=== PATIENT | male | born 1985 | race Hispanic/Latino ===

== ENCOUNTER 2020-01-24 15:46 | Emergency (ER) | payer OTHER ==
[2020-01-24] MEDS ORDERED: SODIUM CHLORIDE 0.9% (FLUSH) 10 ML SYG IV PRN (15:47)
[2020-01-24] MEDS ORDERED: ONDANSETRON INJ 4 MG/2 ML VIAL IV ONE (16:09)
[2020-01-24] MEDS ORDERED: MORPHINE SULFATE INJ 10 MG/ML VIAL IV ONE ×3 (16:09→19:03)
[2020-01-24] MEDS ORDERED: NITROGLYCERIN 0.4 MG 25 EA TAB SL ONE (16:09)
[2020-01-24] MEDS ORDERED: SODIUM CHLORIDE 0.9% 1000ML 1,000 ML IVS ONE ×2 (16:10→17:40)
--- NOTE | 2020-01-24 16:12 | ED.PDOC ---
History of Present Illness - General Chief Complaint: Chest Pain/DE Stated Complaint: chest pain Time Seen by Provider: 01/24/20 15:47 Source: patient - History of Present Illness Initial Comments: 34 yo male with PMH of HTN who presents with cc of chest pain. Onset at 6 am today, worsened acutely approx 1 hour ago at rest, since then has been constant sharp 10/10 severity, located to entire anterior chest, radiates to back, neck, and head. Tried ASA 325 mg PO this morning w/o relief. Went to chiropractor and got an adjustment just [employer]BER but no relief, only worsening. Also reports dyspnea, nausea w/o emesis. Not worsened with exertion or improved with rest. Worse with sitting forward, better with slightly reclining. No hx of similar sx's. No recent acute illness. No hx of DVT or PE. No leg swelling or pain. Sees Dr. Holt Allergies/Adverse Reactions: Allergies NO KNOWN ALLERGY Allergy (Verified 01/24/20 16:04) Home Medications: Ambulatory Orders Acetaminophen W/ Codeine [Tylenol W/ CODEINE #3] 1 ea PO Q6H PRN 7 Days #10 01/24/20 Cetirizine HCl [ZyrTEC] 10 mg PO DAILY 01/24/20 RX: Amoxicillin 1,000 mg PO TID 5 Days #15 cap 01/24/20 RX: Lisinopril 20 mg PO DAILY 01/24/20 Review of Systems - Review of Systems Review of Systems: 01/24/20 16:32 as per HPI All other Systems: Reviewed and Negative Past Medical History (General) - Patient Medical History Hx Stroke: No Hx Congestive Heart Failure: No Hx Hypertension: Yes Hx Diabetes: No - Vaccination History Hx Influenza Vaccination: Yes - Social History Hx Tobacco Use: No Family Medical History - Family History Father Family History: Unknown Living Status: Unknown Physical Exam - Physical Exam General Appearance: Anxious, Restless Eyes, Ears, Nose, Throat Exam: PERRL/EOMI, normal ENT inspection, pharynx normal Neck: non-tender, full range of motion, supple, normal inspection Respiratory: lungs clear, normal breath sounds, no respiratory distress, no accessory muscle use Cardiovascular/Chest: normal peripheral pulses, no edema, no gallop, no JVD, no murmur, tachycardia, other - chest pain reproducible on palpation of anterior chest wall and with deep breathing Peripheral Pulses: radial,right: 2+, radial,left: 2+ Gastrointestinal/Abdominal: non tender, soft, no organomegaly Extremity: normal range of motion, non-tender, normal inspection, no pedal edema, no calf tenderness 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 WBC is elevated to 17,000 with 88% segs and no bands, lactate 1.4. Blood cx's drawn given tachycardia and leukocytosis but pt afebrile no clear infectious source. CXR no acute processes per my read. -Pt reports pain much improved but still moderate severity. He appears much more relaxed, calmed. HR improved to 103, remainder of vitals wnl. States pain is sharp, center of chest, worse with breathing. I suspect costochondritis most likely vs acute anxiety/panic attack vs both. Pt does admit inc'd stress from hearing news about poor health in his GF this morning before pain worsened. -will give another morphine 4 mg IV and Ativan 1 mg IV. Repeat EKG & trop 01/24/20 19:05 -Pain continues to improve - now 4/10 severity at rest but states still sharply worsens with taking a deep breath and moving around. He also remains tachycardic, HR 105 currently. Remainder of vitals wnl. -Repeat EKG largely unchanged but question some very min ST elevs diffusely without reciprocal changes. Repeat trop <0.02. Flu & strep negative. Given persistent pain and leukocytosis and questionable EKG, consider possibly acute pericarditis. CRP/ESR ordered and both wnl. Will obtain CT Chest also to exclude pericardial effusion or other etiologies to explain persistent pain in setting of normal cardiac evaluation. Will also repeat EKG & trop and consult cardiology. Another morphine 4 mg IV for pain. 01/24/20 20:54 -CT chest reveals areas of small atelectasis BL but no acute processes. ESR & CRP wnl. Repeat EKG (#3) appears unchanged from prior and trop remains <0.02. -Pt continues to report improving pain, remains stable. Exam reveals mild chest wall ttp and continued normal heart and lung sounds on exam. -Spoke with Dr. Manuel (cardiology) at [facility] over the phone in consultation regarding the patient. He was able to review the patient's EKG's as well. He agrees, does not appear c/w ACS or STEMI. Seems more c/w pleuritic or MSK chest wall pain given worsening with palpation and deep breathing. States viral pericarditis is possible but unlikely given neutrophilic predominance. Further pt also with normal inflammatory markers. Does not feel patient warrants urgent or emergent transfer for cardiology consultation at this time, agrees with the ED work-up. -Discussed again with pt. Will give Toradol 30 mg IV in ED and send home. Advised continued OTC analgesics with ibuprofen and Tylenol. Will give Tylenol #3 PRN Rx for breakthrough pain. Given his leukocytosis with left shift and atelectasis findings on CT chest which I cannot definitely say could be early infectious processes, will treat for possible community acquired pneumonia with high-dose oral amoxicillin therapy - 1000 mg PO TID x5 days. Advised strict ED return warnings and close PCP f/u. Lucian Rowe MD Billing #[id number] 01/24/20 15:47 Sodium Chloride 0.9% (Flush) [Saline Flush Syringe] 10 ml IV PRN PRN Pulse Oximetry Assessment DAILY 01/24/20 16:00 EKG STAT 01/24/20 16:43 BLOOD CULTURE Stat 01/24/20 17:45 EKG STAT 01/24/20 19:04 Hold Metformin x 48Hrs [id number] 01/24/20 19:15 EKG STAT 01/24/20 20:13 STREP A SCREEN CULTURE Stat 01/25/20 09:00 Pulse Ox Daily Laboratory Results - last 24 hr 01/24/20 01/24/20 01/24/20 14:47 14:47 14:47 WBC RBC Hgb Hct MCV MCH MCHC RDW Plt Count MPV Absolute Neuts (auto) Absolute Lymphs (auto) Absolute Monos (auto) Absolute Eos (auto) Absolute Basos (auto) Neutrophils % Lymphocytes % Monocytes % Eosinophils % Basophils % ESR 2 D-Dimer, Quantitative Sodium Potassium Chloride Carbon Dioxide Anion Gap BUN Creatinine BUN/Creatinine Ratio Random Glucose Serum Osmolality Lactic Acid Calcium Troponin I < 0.02 C-Reactive Protein 0.8 B-Natriuretic Peptide Urine Color Urine Appearance Urine pH Ur Specific Haw[place] Urine Protein Urine Glucose (UA) Urine Ketones Urine Blood Urine Nitrite Urine Bilirubin Urine Urobilinogen Ur Leukocyte Esterase Urine RBC Urine WBC Ur Epithelial Cells Urine Bacteria Urine Opiates Screen Urine Barbiturates Ur Phencyclidine Scrn U Amphetamin/Meth Scrn U Benzodiazepines Scrn U Cocaine Metab Screen U Cannabinoids Screen Group A Strep Rapid 01/24/20 01/24/20 01/24/20 16:13 16:13 16:13 WBC 17.0 H RBC 5.50 Hgb 17.0 Hct 50.5 MCV 91.9 MCH 30.9 MCHC 33.6 RDW 14.2 Plt Count 228 MPV 7.4 Absolute Neuts (auto) 15.00 H Absolute Lymphs (auto) 1.10 Absolute Monos (auto) 0.80 Absolute Eos (auto) 0.10 Absolute Basos (auto) 0.10 Neutrophils % 88.1 H Lymphocytes % 6.2 L Monocytes % 4.9 Eosinophils % 0.4 L Basophils % 0.4 ESR D-Dimer, Quantitative Sodium 137 Potassium 3.9 Chloride 103 Carbon Dioxide 26 Anion Gap 11.9 L BUN 20 H Creatinine 1.04 BUN/Creatinine Ratio 19.2 Random Glucose 167 H Serum Osmolality 280.2 Lactic Acid Calcium 9.1 Troponin I C-Reactive Protein B-Natriuretic Peptide < 5.0 Urine Color Urine Appearance Urine pH Ur Specific Hawley Urine Protein Urine Glucose (UA) Urine Ketones Urine Blood Urine Nitrite Urine Bilirubin Urine Urobilinogen Ur Leukocyte Esterase Urine RBC Urine WBC Ur Epithelial Cells Urine Bacteria Urine Opiates Screen Urine Barbiturates Ur Phencyclidine Scrn U Amphetamin/Meth Scrn U Benzodiazepines Scrn U Cocaine Metab Screen U Cannabinoids Screen Group A Strep Rapid 01/24/20 01/24/20 01/24/20 16:13 16:43 16:58 WBC RBC Hgb Hct MCV MCH MCHC RDW Plt Count MPV Absolute Neuts (auto) Absolute Lymphs (auto) Absolute Monos (auto) Absolute Eos (auto) Absolute Basos (auto) Neutrophils % Lymphocytes % Monocytes % Eosinophils % Basophils % ESR D-Dimer, Quantitative < 131 L Sodium Potassium Chloride Carbon Dioxide Anion Gap BUN Creatinine BUN/Creatinine Ratio Random Glucose Serum Osmolality Lactic Acid 1.4 Calcium Troponin I < 0.02 C-Reactive Protein B-Natriuretic Peptide Urine Color Urine Appearance Urine pH Ur Specific [place] Urine Protein Urine Glucose (UA) Urine Ketones Urine Blood Urine Nitrite Urine Bilirubin Urine Urobilinogen Ur Leukocyte Esterase Urine RBC Urine WBC Ur Epithelial Cells Urine Bacteria Urine Opiates Screen Urine Barbiturates Ur Phencyclidine Scrn U Amphetamin/Meth Scrn U Benzodiazepines Scrn U Cocaine Metab Screen U Cannabinoids Screen Group A Strep Rapid 01/24/20 01/24/20 01/24/20 18:29 18:29 19:26 WBC RBC Hgb Hct MCV MCH MCHC RDW Plt Count MPV Absolute Neuts (auto) Absolute Lymphs (auto) Absolute Monos (auto) Absolute Eos (auto) Absolute Basos (auto) Neutrophils % Lymphocytes % Monocytes % Eosinophils % Basophils % ESR D-Dimer, Quantitative Sodium Potassium Chloride Carbon Dioxide Anion Gap BUN Creatinine BUN/Creatinine Ratio Random Glucose Serum Osmolality Lactic Acid Calcium Troponin I < 0.02 C-Reactive Protein B-Natriuretic Peptide Urine Color Yellow Urine Appearance Clear Urine pH 6.0 Ur Specific [place] 1.025 Urine Protein Negative Urine Glucose (UA) Negative Urine Ketones Negative Urine Blood Negative Urine Nitrite Negative Urine Bilirubin Negative Urine Urobilinogen 0.2 Ur Leukocyte Esterase Trace H Urine RBC 1-3 Urine WBC 1-3 Ur Epithelial Cells 0 Urine Bacteria 0 Urine Opiates Screen Negative Urine Barbiturates Negative Ur Phencyclidine Scrn Negative U Amphetamin/Meth Scrn Negative U Benzodiazepines Scrn Negative U Cocaine Metab Screen Negative U Cannabinoids Screen Negative Group A Strep Rapid 01/24/20 20:13 WBC RBC Hgb Hct MCV MCH MCHC RDW Plt Count MPV Absolute Neuts (auto) Absolute Lymphs (auto) Absolute Monos (auto) Absolute Eos (auto) Absolute Basos (auto) Neutrophils % Lymphocytes % Monocytes % Eosinophils % Basophils % ESR D-Dimer, Quantitative Sodium Potassium Chloride Carbon Dioxide Anion Gap BUN Creatinine BUN/Creatinine Ratio Random Glucose Serum Osmolality Lactic Acid Calcium Troponin I C-Reactive Protein B-Natriuretic Peptide Urine Color Urine Appearance Urine pH Ur Specific [place] Urine Protein Urine Glucose (UA) Urine Ketones Urine Blood Urine Nitrite Urine Bilirubin Urine Urobilinogen Ur Leukocyte Esterase Urine RBC Urine WBC Ur Epithelial Cells Urine Bacteria Urine Opiates Screen Urine Barbiturates Ur Phencyclidine Scrn U Amphetamin/Meth Scrn U Benzodiazepines Scrn U Cocaine Metab Screen U Cannabinoids Screen Group A Strep Rapid Negative - EKG/XRAY/CT EKG: Sinus, Tachy - HR 115, no ST elevs or q waves, nonspecific changes inferior and lateral leads, axis & intervals normal, no prior EKG for comparison XRAY: chest - no acute processes per my read Departure - Departure Clinical Impression: Costochondritis, acute, Community acquired pneumonia Time of Disposition: 20:48 Disposition: Discharge to Home or Self Care Condition: Fair Departure Forms: ED Discharge - Pt. Copy, Patient Portal Self Enrollment Instructions: DI for Chest Pain Diet: resume usual diet Activity: other - advise rest, light activity for 3-5 days then increase as tolerated Referrals: Luis Holt MD [Primary Care Provider] - 1-5 Days Prescriptions: Acetaminophen W/ Codeine [Tylenol W/ CODEINE #3] 1 ea PO Q6H PRN 7 Days #10 PRN Reason: Pain RX: Amoxicillin 1,000 mg PO TID 5 Days #15 cap Home Medications: Ambulatory Orders Acetaminophen W/ Codeine [Tylenol W/ CODEINE #3] 1 ea PO Q6H PRN 7 Days #10 01/24/20 Cetirizine HCl [ZyrTEC] 10 mg PO DAILY 01/24/20 RX: Amoxicillin 1,000 mg PO TID 5 Days #15 cap 01/24/20 RX: Lisinopril 20 mg PO DAILY 01/24/20 Additional Instructions: Remain well-hydrated with water and continue OTC NSAIDs such as ibuprofen 600- 800 mg every 6-8 hours as needed for pain. You may also safely take Tylenol 650 mg every 6 hours as needed with the ibuprofen. You may take the Tylenol #3 as needed for breakthrough pain but do not drive or operate heavy machinery when taking. Return if your symptoms return or worsen or if you develop any other concerning symptoms such as fevers >100 F, shortness of breath, change in chest pain, heart racing, etc... Follow up closely with your primary care doctor for repeat evaluation.
--- NOTE | 2020-01-24 16:14 | RAD ---
EXAM DESCRIPTION: Chest,1 View CLINICAL HISTORY: 34 years Male, chest pain COMPARISON: None. FINDINGS: One view/radiograph Heart size and pulmonary vessels are within normal limits. There is no pneumothorax or pleural effusion. The lungs are clear bilaterally. The soft tissues are unremarkable. No acute osseous findings. IMPRESSION: No acute cardiopulmonary abnormality. Electronically signed by: Zev Mitchell MD 01/24/2020 4:13 PM CDT
[2020-01-24] MEDS ORDERED: NITROGLYCERIN 2% 1 GM UD TOP ONE (17:57)
--- NOTE | 2020-01-24 19:52 | CT ---
PROCEDURE: CT Chest w/Contrast CLINICAL HISTORY: 34 years Male refractory chest pain, tachycardia TECHNIQUE: Contiguous axial images obtained through the chest after IV contrast administration. Coronal and sagittal reformatted images provided. This CT exam was performed according to our departmental dose-optimization program, which includes one or more of the following dose reduction techniques: automated exposure control, adjustment of the mA and/or kV according to patient size, and/or use of iterative reconstruction technique. COMPARISON: Correlation is made with the radiographs obtained earlier the same day. FINDINGS: Dependent bibasilar atelectasis. The lungs are otherwise clear without focal consolidation, effusion, or pneumothorax. The central airways are patent. The heart is normal in size without pericardial effusion. The aorta and central pulmonary vasculature are normal in caliber. No lymphadenopathy in the chest. Steatosis of the liver. No upper abdominal or osseous abnormality. IMPRESSION: No acute findings in the chest or upper abdomen. Steatosis of the liver. Electronically signed by: Mara Diggs MD 01/24/2020 7:51 PM CDT
[2020-01-24] MEDS ORDERED: KETOROLAC TROMETHAMINE INJ 30 MG/ML VIAL IV ONE (20:46)
[2020-01-24] MEDS ORDERED: ACETAMINOPHEN W/COD #3 TAB (ER Disp) PO ONE (20:46)
[2020-01-24] MEDS ORDERED: AMOXICILLIN 500 MG CAP PO ONE (20:47)
[2020-01-24 21:50] VITALS: O2SAT 96
[2020-01-24 21:52] VITALS: BP 111/65; TEMP 99.2
== END 2020-01-24 21:35 | disposition home or self-care (01) ==
LOC: ER 15:46
DX: M94.0 Chondrocostal junction syndrome [Tietze] (principal); J18.9 Pneumonia, unspecified organism; R07.9 Chest pain, unspecified; I10 Essential (primary) hypertension
CPT/HCPCS: 71045; 71260; 80048; 80307; 81001; 83605; 83880; 84484; 85025; 85379; 85651; 86140; 87040; 87070; 87502; 87880; 93005; J1885; J2060; J2270; J2405; J7030